=== PATIENT | male | born 1955 | race Caucasian/White ===

== ENCOUNTER → 2017-03-01 08:37 | Outpatient (CLI) | payer BC ==
[2017-03-02 07:25] LABS: VITAMIN D 25 HYDROXY 64.1 ng/mL (30.0-100.0)
[2017-03-03 03:11] LABS: TESTOSTERONE - FREE 7.2 pg/mL (6.6-18.1); TESTOSTERONE - SERUM 283 ng/dL (264-916)
== END | disposition home or self-care (01) ==
LOC: D.LAB 08:30
PROVIDERS: Family Medicine
DX: R53.81 Other malaise (principal); R53.83 Other fatigue

== ENCOUNTER → 2019-06-20 10:31 | Outpatient (CLI) | payer MEDICARE, BC | END | disposition home or self-care (01) | LOC: D.MRI 10:31 | PROVIDERS: ATTEND Family Medicine | DX: M51.36 Other intervertebral disc degeneration, lumbar region (principal) ==